=== PATIENT | female | born 1995 | race Hispanic/Latino ===

== ENCOUNTER 2020-09-09 20:32 | Inpatient (IN) | payer BC ==
[2020-09-09] MEDS ORDERED: LACTATED RINGERS 1,000 ML ONE (20:52)
[2020-09-09] MEDS ORDERED: TERBUTALINE 1 MG/1 ML INJ SUB-Q PRN (21:58)
[2020-09-09] MEDS ORDERED: MINERAL OIL 30 ML ORAL LIQD PO PRN (21:58)
[2020-09-09] MEDS ORDERED: LIDOCAINE (2%) 20 MG/1 ML VIAL 20 ML MDV INFILTRATI ONE (21:58)
[2020-09-09] MEDS ORDERED: OXYTOCIN DRIP 30 UNITS/500 ML BAG IV SCH (22:00)
[2020-09-09] MEDS: LACTATED RINGERS 1,000 ML IV SCH ×2 (22:38→22:45)
[2020-09-09 22:39] LABS: Hemoglobin 10.3 gm/dl (10.1-14.3); Mean Corpuscular HGB Conc 33 % (30-34); Mean Corpuscular Volume 86 fl (79-97); Platelet Count 255 K/mm3 (140-440); Red Blood Count 3.61 M/mm3 (3.65-5.03); Red Cell Distribution Width 14.3 % (13.2-15.2)
[2020-09-09] MEDS: OXYTOCIN DRIP 30 UNITS/500 ML BAG IV SCH (23:39)
[2020-09-10] MEDS ORDERED: fentaNYL 100 MCG/2 ML INJ IV PRN (01:27)
--- NOTE | 2020-09-10 06:00 | History and Physical Report ---
History of Present Illness Date of examination: 09/10/20 Date of admission: 09/09/20 20:32 Chief complaint: IOL post term History of present illness: EDC Calculations LMP: 08/31/2020 EDC Confirmation: 08/31/2020 Gestational Age: 6 4/7 weeks Past History : 1 Term Births: 0 Premature Births: 0 Living Children: 0 Para: 0 Mult. Births: 0 Prev : 0 Aborta: 0 Elect. Ab: 0 Spont. 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 Infection History Hx of STD: none HIV Risk Eval: no Hepatitis B Risk Eval: low risk Personal hx. of genital herpes: no Genetic History Congenital Heart Defect: Mom: no Dad: no Morgan Disease: Mom: no Dad: no Thalassemia Mom: no Dad: no Neural Tube Defect Mom: no Dad: no Down's Syndrome Mom: no Dad: no Greg-Sachs Mom: no Dad: no Sickle Cell Disease/Trait Mom: no Dad: no Hemophilia Mom: no Dad: no Muscular Dystrophy Mom: no Dad: no Cystic Fibrosis Mom: no Dad: no Newton Chorea Mom: no Dad: no Mental Retardation Mom: no Dad: no Fragile X Mom: no Dad: no Other Genetic/Chromosomal Disorder Mom: no Dad: no Child w/other defect Mom: no Dad: no Enviromental Exposures Xray Exposure: no Medication, drug, or alcohol use since LMP: no Exposure to Cat Liter: no Active Medications: None Current Allergies (reviewed today): * SULFA (Critical) Past History - Obstetrical History Expected Date of Delivery: 10/23/20 Actual Gestation: 41 Week(s) 3 Day(s) : 1 Medications and Allergies Allergies Allergy/AdvReac Type Severity Reaction Status Date / Time latex Allergy Rash Verified 09/09/20 20:59 Sulfa (Sulfonamide Allergy Hives Verified 09/09/20 20:59 Antibiotics) Home Medications Medication Instructions Recorded Confirmed Last Taken Type No Known Home Medications [No 09/09/20 09/09/20 Unknown History Reported Home Medications] Active Meds: Active Medications Ephedrine Sulfate (Ephedrine Sulfate) 10 mg IV Q2M PRN PRN Reason: Hypotension Fentanyl (Sublimaze) 100 mcg IV Q1H PRN PRN Reason: Labor Pain Last Admin: 09/10/20 01:52 Dose: 100 mcg Documented by: Oxytocin/Sodium Chloride (Pitocin/Ns 30 Unit/500ml) 30 units in 500 mls @ 2 mls/hr IV TITR AYAKA; Protocol Last Titration: 09/10/20 05:13 Dose: 3 ml/hr, 3 mls/hr Documented by: Lactated Ringer's (Lactated Ringers) 1,000 mls @ 125 mls/hr IV DIRECT AYAKA Last Admin: 09/09/20 22:45 Dose: 125 mls/hr Documented by: Oxytocin/Sodium Chloride (Pitocin/Ns 30 Unit/500ml) 30 units in 500 mls @ 40 mls/hr IV TITR AYAKA; Protocol Mineral Oil (Mineral Oil) 30 ml PO QHS PRN PRN Reason: Constipation Terbutaline Sulfate (Brethine) 0.25 mg SUB-Q ONCE PRN PRN Reason: Hyperstimulation/Hypertonicity Review of Systems All systems: negative Genitourinary: contractions - Vital Signs Vital signs: Vital Signs Pulse BP Pulse Ox 93 H 130/71 99 09/09/20 21:16 09/09/20 21:16 09/09/20 21:16 Temp Pulse Resp BP Pulse Ox 98.8 F 91 H 18 122/67 99 09/10/20 04:07 09/10/20 04:04 09/10/20 04:07 09/10/20 04:04 09/10/20 01:44 - Physical Exam Breasts: Positive: deferred Cardiovascular: Regular rate Lungs: Positive: Normal air movement Abdomen: Positive: soft. Negative: distention, tenderness Genitourinary (Female): Positive: normal external genitalia, normal perenium Vulva: both: normal Uterus: Positive: enlarged. Negative: tender Anus/Rectum: Positive: normal perianal skin Extremities: Positive: normal. Negative: tenderness, edema - Obstetrical FHR: category 1 Uterine Contraction Monitor Mode: External Cervical Dilatation: 5 Cervical Effacement Percentage: 100 station: 0 Uterine Contraction Frequency (min): 2-3 Uterine Contraction Pattern: Regular Results Result Diagrams: 09/09/20 21:47 Abnormal lab results 09/09/20 Range/Units 21:47 WBC 12.5 H (4.5-11.0) K/mm3 RBC 3.61 L (3.65-5.03) M/mm3 All other labs normal. Assessment and Plan - Patient Problems (1) 41 weeks gestation of Current Visit: Yes Status: Acute Plan to address problem: Now active labor, anticipate vaginal delivery
[2020-09-10] MEDS ORDERED: DEXMEDETOMIDINE 200 MCG/2 ML VIAL IV ONE (06:33)
[2020-09-10] MEDS: ePHEDrine SULFATE 50 MG/1 ML INJ IV PRN ×2 (06:51→06:55)
[2020-09-10] MEDS ORDERED: fentaNYL-BUPIV 2 MCG/ML-0.125% 200 MCG/100 ML BAG EPIDURAL ONE (07:04)
[2020-09-10] MEDS ORDERED: NALOXONE 2 MG/2 ML INJ IV PRN (07:09)
[2020-09-10] MEDS ORDERED: ePHEDrine SULFATE 50 MG/1 ML INJ IV PRN (07:09)
--- NOTE | 2020-09-10 07:11 | Anesthesia Consultation ---
Anesthesia Consult and Med Hx Date of service: 09/10/20 - Airway Anesthetic Teeth Evaluation: Good ROM Head & Neck: Adequate Mental/Hyoid Distance: Adequate Mallampati Class: Class II Intubation Access Assessment: Good - Pulmonary Exam CTA: Yes - Cardiac Exam Cardiac Exam: RRR - Pre-Operative Health Status ASA Pre-Surgery Classification: ASA2 Proposed Anesthetic Plan: Epidural - Pulmonary Hx Smoking: No Hx Asthma: No Hx Respiratory Symptoms: No SOB: No COPD: No Home Oxygen Therapy: No Hx Pneumonia: No Hx Sleep Apnea: No - Cardiovascular System Hx Hypertension: No Hx Coronary Artery Disease: No Hx Heart Attack/AMI: No Hx Angina: No Hx Percutaneous Transluminal Coronary Angioplasty (PTCA): No Hx Cardia Arrhythmia: No Hx Pacemaker: No Hx Internal Defibrillator: No Hx Valvular Heart Disease: No Hx Heart Murmur: No Hx Peripheral Vascular Disease: No - Central Nervous System Hx Neuromuscular Disorder: No Hx Seizures: No CVA: No Hx Back Pain: No Hx Psychiatric Problems: No - Gastrointestinal Hx Ulcer: No Hx Gastroesophageal Reflux Disease: No - Endocrine Hx Renal Disease: No Hx End Stage Renal Disease: No Hx Cirrhosis: No Hx Liver Disease: No Hx Insulin Dependent Diabetes: No Hx Non-Insulin Dependent Diabetes: No Hx Thyroid Disease: No Hx Hypothyroidism: No Hx Hyperthyroidism: No - Hematic Hx Anemia: No Hx Sickle Cell Disease: No - Other Systems Hx Alcohol Use: Yes (NOT DURING ) Hx Substance Use: No Hx Cancer: No Hx Obesity: Yes
--- NOTE | 2020-09-10 07:12 | Progress Note ---
Labor Epidural - Labor Epidural Start Time: 06:14 Stop Time: 06:30 Performed by:: [facility] Procedure: Patient is requesting a laboring epidural for laboring pain. Patient IDed, H&P reviewed, all questions and concerns were answered, and consent was signed. Timeout was performed at bedside. Patient in sitting position. Sterile prep and drape was performed. [3] ml of 1% lidocaine skin wheal at L[]- L []. 18- gauge Tuohy epidural needle was advanced to loss of resistance with air technique to 4cm. Negative CSF negative blood via Tuohy needle. #27g Spinal needle clear, free flowing CSF, Pecedex 10 mcg. Epidural catheter advanced to [10] centimeters. [negative] Aspiration [negative] test dose. Sterile dressing applied. Patient tolerated procedure.
[2020-09-10] MEDS: OXYTOCIN DRIP 30 UNITS/500 ML BAG IV SCH ×2 (07:56→08:51)
[2020-09-10] MEDS ORDERED: fentaNYL-BUPIV 2 MCG/ML-0.125% 200 MCG/100 ML BAG EPIDURAL SCH (08:00)
--- NOTE | 2020-09-10 08:52 | Progress Note ---
Assessment and Plan A: 24 y.o. @ 41+ wks in active labor. Cervical exam 6/100/-2, AROM, clear fluid. P: Continue with Pitocin per protocol. Anticipate . Subjective - Subjective Date of service: 09/10/20 (Late Entry note from 0815) Principal diagnosis: IUP at 41+ wks in active labor. Objective - Vital Signs Vital Signs: Vital Signs - 12hr 09/09/20 09/09/20 09/09/20 21:16 21:21 21:26 Temperature Pulse Rate 92 H 102 H 105 H Respiratory Rate Blood Pressure 130/71 Blood Pressure [Right] O2 Sat by Pulse 99 98 99 Oximetry 09/09/20 09/09/20 09/09/20 21:31 21:36 21:41 Temperature Pulse Rate 105 H 95 H 102 H Respiratory Rate Blood Pressure Blood Pressure [Right] O2 Sat by Pulse 100 99 100 Oximetry 09/09/20 09/09/20 09/09/20 21:46 21:51 22:02 Temperature Pulse Rate 89 89 88 Respiratory Rate Blood Pressure Blood Pressure [Right] O2 Sat by Pulse 99 99 100 Oximetry 09/09/20 09/09/20 09/09/20 22:03 22:07 22:12 Temperature 98.9 F Pulse Rate 85 81 Respiratory 18 Rate Blood Pressure Blood Pressure [Right] O2 Sat by Pulse 100 100 Oximetry 09/09/20 09/09/20 09/09/20 22:17 22:22 22:27 Temperature Pulse Rate 80 84 79 Respiratory Rate Blood Pressure Blood Pressure [Right] O2 Sat by Pulse 99 100 100 Oximetry 09/09/20 09/09/20 09/09/20 22:32 22:37 22:42 Temperature Pulse Rate 84 92 H 88 Respiratory Rate Blood Pressure Blood Pressure [Right] O2 Sat by Pulse 100 100 100 Oximetry 09/09/20 09/09/20 09/09/20 22:47 22:52 22:57 Temperature Pulse Rate 79 84 80 Respiratory Rate Blood Pressure Blood Pressure [Right] O2 Sat by Pulse 99 99 99 Oximetry 09/09/20 09/09/20 09/09/20 23:02 23:11 23:16 Temperature Pulse Rate 85 85 74 Respiratory Rate Blood Pressure Blood Pressure [Right] O2 Sat by Pulse 98 98 99 Oximetry 09/09/20 09/09/20 09/09/20 23:21 23:26 23:31 Temperature Pulse Rate 76 84 88 Respiratory Rate Blood Pressure Blood Pressure [Right] O2 Sat by Pulse 98 99 99 Oximetry 09/09/20 09/09/20 09/09/20 23:36 23:41 23:46 Temperature Pulse Rate 77 82 75 Respiratory Rate Blood Pressure Blood Pressure [Right] O2 Sat by Pulse 100 99 99 Oximetry 09/09/20 09/09/20 09/10/20 23:51 23:56 00:01 Temperature Pulse Rate 75 79 77 Respiratory Rate Blood Pressure Blood Pressure [Right] O2 Sat by Pulse 98 98 98 Oximetry 09/10/20 09/10/20 09/10/20 00:06 00:14 00:19 Temperature Pulse Rate 94 H 76 77 Respiratory Rate Blood Pressure Blood Pressure [Right] O2 Sat by Pulse 99 100 98 Oximetry 09/10/20 09/10/20 09/10/20 00:24 00:29 00:34 Temperature Pulse Rate 82 78 75 Respiratory Rate Blood Pressure Blood Pressure [Right] O2 Sat by Pulse 97 98 98 Oximetry 09/10/20 09/10/20 09/10/20 00:39 00:44 00:49 Temperature Pulse Rate 79 71 74 Respiratory Rate Blood Pressure Blood Pressure [Right] O2 Sat by Pulse 99 99 98 Oximetry 09/10/20 09/10/20 09/10/20 00:54 00:59 01:04 Temperature Pulse Rate 73 71 92 H Respiratory Rate Blood Pressure Blood Pressure [Right] O2 Sat by Pulse 99 99 100 Oximetry 09/10/20 09/10/20 09/10/20 01:09 01:14 01:19 Temperature Pulse Rate 73 83 79 Respiratory Rate Blood Pressure Blood Pressure [Right] O2 Sat by Pulse 98 99 99 Oximetry 09/10/20 09/10/20 09/10/20 01:24 01:29 01:34 Temperature Pulse Rate 79 85 74 Respiratory Rate Blood Pressure Blood Pressure [Right] O2 Sat by Pulse 100 99 99 Oximetry 09/10/20 09/10/20 09/10/20 01:39 01:44 01:52 Temperature Pulse Rate 82 78 Respiratory 18 Rate Blood Pressure Blood Pressure [Right] O2 Sat by Pulse 100 99 Oximetry 09/10/20 09/10/20 09/10/20 02:52 04:04 04:07 Temperature 98.8 F Pulse Rate 91 H Respiratory 18 18 Rate Blood Pressure 122/67 Blood Pressure [Right] O2 Sat by Pulse Oximetry 09/10/20 09/10/20 09/10/20 06:10 06:12 06:14 Temperature Pulse Rate 88 98 H 91 H Respiratory Rate Blood Pressure 124/69 127/68 131/66 Blood Pressure [Right] O2 Sat by Pulse Oximetry 09/10/20 09/10/20 09/10/20 06:16 06:18 06:20 Temperature Pulse Rate 105 H 88 102 H Respiratory Rate Blood Pressure 132/75 143/66 120/59 Blood Pressure [Right] O2 Sat by Pulse Oximetry 09/10/20 09/10/20 09/10/20 06:22 06:24 06:26 Temperature Pulse Rate 108 H 95 H 118 H Respiratory Rate Blood Pressure 125/64 134/64 137/65 Blood Pressure [Right] O2 Sat by Pulse Oximetry 09/10/20 09/10/20 09/10/20 06:28 06:30 06:32 Temperature Pulse Rate 96 H 92 H 97 H Respiratory Rate Blood Pressure 133/64 140/69 124/70 Blood Pressure [Right] O2 Sat by Pulse Oximetry 09/10/20 09/10/20 09/10/20 06:36 06:40 06:41 Temperature Pulse Rate 111 H 101 H 74 Respiratory Rate Blood Pressure 109/60 98/51 79/41 Blood Pressure [Right] O2 Sat by Pulse Oximetry 09/10/20 09/10/20 09/10/20 06:42 06:44 06:46 Temperature Pulse Rate 75 85 112 H Respiratory Rate Blood Pressure 96/51 98/50 108/57 Blood Pressure [Right] O2 Sat by Pulse Oximetry 09/10/20 09/10/20 09/10/20 06:48 06:50 06:52 Temperature Pulse Rate 93 H 80 83 Respiratory Rate Blood Pressure 105/53 88/53 91/52 Blood Pressure [Right] O2 Sat by Pulse Oximetry 09/10/20 09/10/20 09/10/20 06:54 06:56 06:58 Temperature Pulse Rate 87 60 82 Respiratory Rate Blood Pressure 85/44 113/56 110/55 Blood Pressure [Right] O2 Sat by Pulse Oximetry 09/10/20 09/10/20 09/10/20 07:00 07:02 07:04 Temperature 98.0 F Pulse Rate 88 109 H 108 H Respiratory 16 Rate Blood Pressure 109/59 107/58 95/55 Blood Pressure 95/55 [Right] O2 Sat by Pulse 95 Oximetry 09/10/20 09/10/20 09/10/20 07:06 07:08 07:10 Temperature Pulse Rate 88 121 H 120 H Respiratory Rate Blood Pressure 97/55 96/59 87/51 Blood Pressure [Right] O2 Sat by Pulse Oximetry 09/10/20 09/10/20 09/10/20 07:12 07:14 07:16 Temperature Pulse Rate 83 103 H 103 H Respiratory Rate Blood Pressure 109/57 102/59 107/56 Blood Pressure [Right] O2 Sat by Pulse 97 Oximetry 09/10/20 09/10/20 09/10/20 07:18 07:20 07:21 Temperature Pulse Rate 96 H 95 H 111 H Respiratory Rate Blood Pressure 110/58 113/57 Blood Pressure [Right] O2 Sat by Pulse 99 Oximetry 09/10/20 09/10/20 09/10/20 07:22 07:24 07:26 Temperature Pulse Rate 104 H 89 79 Respiratory Rate Blood Pressure 112/59 111/57 111/58 Blood Pressure [Right] O2 Sat by Pulse 99 Oximetry 09/10/20 09/10/20 09/10/20 07:28 07:30 07:31 Temperature Pulse Rate 90 84 114 H Respiratory Rate Blood Pressure 102/58 110/59 Blood Pressure [Right] O2 Sat by Pulse 98 Oximetry 09/10/20 09/10/20 09/10/20 07:32 07:34 07:36 Temperature Pulse Rate 114 H 109 H 117 H Respiratory Rate Blood Pressure 92/55 86/51 107/56 Blood Pressure [Right] O2 Sat by Pulse 99 Oximetry 09/10/20 09/10/20 09/10/20 07:38 07:40 07:41 Temperature Pulse Rate 96 H 107 H 130 H Respiratory Rate Blood Pressure 95/52 101/55 Blood Pressure [Right] O2 Sat by Pulse 99 Oximetry 09/10/20 09/10/20 09/10/20 07:42 07:44 07:46 Temperature Pulse Rate 141 H 89 97 H Respiratory Rate Blood Pressure 97/55 109/60 101/58 Blood Pressure [Right] O2 Sat by Pulse 99 Oximetry 09/10/20 09/10/20 09/10/20 07:48 07:50 07:51 Temperature Pulse Rate 85 107 H 83 Respiratory Rate Blood Pressure 100/55 94/55 Blood Pressure [Right] O2 Sat by Pulse 98 Oximetry 09/10/20 09/10/20 09/10/20 07:52 07:54 07:56 Temperature Pulse Rate 78 116 H 76 Respiratory Rate Blood Pressure 97/55 93/50 101/52 Blood Pressure [Right] O2 Sat by Pulse 98 Oximetry 09/10/20 09/10/20 09/10/20 07:58 08:00 08:01 Temperature Pulse Rate 104 H 77 102 H Respiratory Rate Blood Pressure 95/48 99/50 Blood Pressure [Right] O2 Sat by Pulse 98 Oximetry 09/10/20 09/10/20 09/10/20 08:02 08:04 08:06 Temperature Pulse Rate 107 H 81 79 Respiratory Rate Blood Pressure 88/46 93/50 82/47 Blood Pressure [Right] O2 Sat by Pulse 98 Oximetry 09/10/20 09/10/20 09/10/20 08:08 08:10 08:11 Temperature Pulse Rate 77 90 104 H Respiratory Rate Blood Pressure 103/50 106/58 Blood Pressure [Right] O2 Sat by Pulse 98 Oximetry 09/10/20 09/10/20 09/10/20 08:12 08:14 08:16 Temperature Pulse Rate 110 H 86 99 H Respiratory Rate Blood Pressure 87/50 96/53 94/50 Blood Pressure [Right] O2 Sat by Pulse 99 Oximetry 09/10/20 09/10/20 09/10/20 08:20 08:21 08:22 Temperature Pulse Rate 89 86 89 Respiratory Rate Blood Pressure 89/53 97/51 Blood Pressure [Right] O2 Sat by Pulse 99 Oximetry 09/10/20 09/10/20 09/10/20 08:24 08:26 08:28 Temperature Pulse Rate 113 H 94 H 71 Respiratory Rate Blood Pressure 79/40 92/55 94/53 Blood Pressure [Right] O2 Sat by Pulse 100 Oximetry 09/10/20 09/10/20 09/10/20 08:30 08:31 08:32 Temperature Pulse Rate 81 109 H 106 H Respiratory Rate Blood Pressure 84/53 83/45 Blood Pressure [Right] O2 Sat by Pulse 99 Oximetry 09/10/20 09/10/20 09/10/20 08:34 08:36 08:38 Temperature Pulse Rate 71 72 85 Respiratory Rate Blood Pressure 99/55 102/52 92/55 Blood Pressure [Right] O2 Sat by Pulse 100 Oximetry 09/10/20 09/10/20 09/10/20 08:40 08:41 08:42 Temperature Pulse Rate 80 92 H 90 Respiratory Rate Blood Pressure 96/51 92/55 Blood Pressure [Right] O2 Sat by Pulse 99 Oximetry 09/10/20 09/10/20 09/10/20 08:44 08:46 08:48 Temperature Pulse Rate 95 H 83 74 Respiratory Rate Blood Pressure 91/54 94/51 100/54 Blood Pressure [Right] O2 Sat by Pulse 100 Oximetry 09/10/20 09/10/20 08:50 08:51 Temperature Pulse Rate 98 H 88 Respiratory Rate Blood Pressure 93/54 96/54 Blood Pressure [Right] O2 Sat by Pulse 100 Oximetry - Exam Breasts: deferred Cardiovascular: Regular rate Lungs: Normal air movement Abdomen: Present: normal appearance, soft Vulva: both: normal Uterus: Present: normal FHR: auscultation normal, category 1 Uterine Contraction Monitor Mode: External Cervical Dilatation: 6 (AROM clear fluid) Cervical Effacement Percentage: 100 station: -2 Uterine Contraction Pattern: Regular Uterine Tone Measurement Phase: Resting Uterine Contraction Intensity: Moderate Extremities: normal Deep Tendon Reflex Grade: Normal +2 - Labs Labs: Abnormal Labs 09/09/20 21:47 WBC 12.5 H RBC 3.61 L Laboratory Results - last 24 hr 09/09/20 09/09/20 09/09/20 21:47 21:47 21:47 WBC 12.5 H RBC 3.61 L Hgb 10.3 Hct 31.0 MCV 86 MCH 29 MCHC 33 RDW 14.3 Plt Count 255 Syphilis IgG Antibody Nonreactive Blood Type A POSITIVE Antibody Screen Negative
--- NOTE | 2020-09-10 12:25 | Procedure Note ---
OB Delivery Note - Environmental Protection Geologist: DORIE HOPE (Kamar GUPTAM) Estimated blood loss: 100cc - Vaginal Delivery presentation: vertex Delivery position: OA (DOMINGO) Intrapartum events: meconium (terminal) Delivery induction: oxytocin Delivery augmentation: rupture of membranes Delivery monitor: external FHT, external uterine Route of delivery: Delivery placenta: spontaneous Delivery cord: 3 umbilical vessels Episiotomy: none Delivery laceration: 1st degree Delivery repair: other (no repair needed) Anesthesia: epidural Delivery comments: viable male born over intact perineum, terminal meconium, 3 vessel cord clamped and cut, infant handed to MUNDO RN, placenta delivered spontaneously and intact, perineum and vagina inspected, 1st degree laceration noted homeostatic, no repair needed, fundus firm, minimal lochia, Apgars 7,9, wt. 8lbs 0oz, EBL 100mL, mother and baby LDR stable, all counts correct x2 - A at 1 minute: 7 at 5 minutes: 9 Infant Gender: Male (8lbs 0oz)
--- NOTE | 2020-09-10 13:07 | Post Anesthesia Evaluation ---
- Post Anesthesia Evaluation Patient Participated: Yes Airway Patent: Yes Stable Respiratory Function: Yes Nausea/Vomiting: No Temp > 96.8F: Yes Pain Manageable: Yes Adequeate Hydration: Yes Anesthesia Complications: No Block Receding Appropriately: Yes Patient on Ventilator: No
[2020-09-10] MEDS ORDERED: IBUPROFEN 600 MG TAB PO SCH (15:48)
[2020-09-10] MEDS ORDERED: CARBOPROST TROMETHAMINE 250 MCG/1 ML INJ IM PRN (15:48)
[2020-09-10] MEDS ORDERED: ACETAMINOPHEN 325 MG TAB PO PRN (15:48)
[2020-09-10] MEDS ORDERED: METHYLERGONOVINE MALEATE 0.2 MG/ML VIAL IM PRN (16:00)
[2020-09-10] MEDS ORDERED: BENZOCAINE/MENTHOL 20/0.5% TOP SPRAY 56 GM TP PRN (16:00)
[2020-09-10] MEDS ORDERED: miSOPROStol 100 MCG TAB PR PRN (16:00)
[2020-09-10] MEDS ORDERED: diphenhydrAMINE 25 MG CAP PO PRN (16:00)
[2020-09-10] MEDS ORDERED: ONDANSETRON 4 MG/2 ML INJ IV PRN (16:00)
[2020-09-10] MEDS ORDERED: WITCH HAZEL/ GLYCERIN PAD TP PRN (16:00)
[2020-09-10] MEDS ORDERED: LOPERAMIDE 2 MG CAP PO PRN (16:00)
[2020-09-10] MEDS ORDERED: ACETAMINOPHEN 500 MG TAB PO PRN (16:00)
[2020-09-10] MEDS ORDERED: OXYTOCIN DRIP 30 UNITS/500 ML BAG IV SCH (16:00)
[2020-09-10] MEDS ORDERED: LANOLIN/ZINC/DIMETHICONE (LANSINOH) 7 GM TP PRN (16:00)
[2020-09-10] MEDS ORDERED: PROMETHAZINE 25 MG TAB PO PRN (16:30)
[2020-09-10] MEDS: IBUPROFEN 800 MG TAB PO SCH (20:09)
[2020-09-10] MEDS ORDERED: MAGNESIUM HYDROXIDE (MOM) ORAL LIQD UDC PO PRN (22:00)
[2020-09-11 01:28] LABS: Hematocrit 27.1 % (30.3-42.9); Hemoglobin 9.1 gm/dl (10.1-14.3)
[2020-09-11] MEDS: DOCUSATE SODIUM 100 MG CAP PO SCH ×2 (05:09→09:30)
[2020-09-11] MEDS: IBUPROFEN 800 MG TAB PO SCH ×2 (05:38→13:25)
[2020-09-11] MEDS ORDERED: DIPHtheria,PERTUSSIS(ACELL),TETANUS VACCINE/PF 0.5 ML VIAL IM ONE (06:00)
[2020-09-11] MEDS ORDERED: PRENATAL VIT27-FE FUMARATE-FOLIC ACID VIT TAB PO SCH (10:00)
--- NOTE | 2020-09-11 11:11 | Discharge Summary ---
Providers - Providers Date of Admission: 09/09/20 20:32 Date of discharge: 09/11/20 (desires d/c home) Attending physician: OLAMIDE RANDOLPH Primary care physician: OLAMIDE RANDOLPH Hospitalization Reason for admission: Labor Condition: Good Pertinent studies: post delivery H&H 9.1/27.1, asymptomatic anemia following acute blood loss Procedures: Hospital course: uncomplicated and course Disposition: DC- TO HOME OR SELFCARE - Discharge Diagnoses (1) (normal spontaneous vaginal delivery) Status: Acute Core Measure Documentation - Palliative Care Palliative Care/ Comfort Measures: Not Applicable - Core Measures Any of the following diagnoses?: none Exam - Constitutional Vitals: Temp Pulse Resp BP Pulse Ox 97.6 F 83 18 105/65 99 09/11/20 07:49 09/11/20 07:49 09/11/20 07:49 09/11/20 07:49 09/11/20 07:49 General appearance: Present: no acute distress, well-nourished - EENT Eyes: Present: PERRL ENT: hearing intact, clear oral mucosa - Neck Neck: Present: supple, normal ROM - Respiratory Respiratory effort: normal - Cardiovascular Rhythm: regular - Extremities Extremities: pulses symmetrical, No edema Peripheral Pulses: within normal limits - Abdominal General gastrointestinal: Present: soft, non-tender, non-distended, normal bowel sounds Female genitourinary: Present: normal - Integumentary Integumentary: Present: clear, warm, dry - Musculoskeletal Musculoskeletal: gait normal, strength equal bilaterally - Psychiatric Psychiatric: appropriate mood/affect, intact judgment & insight - Neurologic Neurologic: CNII-XII intact, moves all extremities - Additional findings Additional findings: lochia scant, fundus firm, VSSAF, breast feeding Plan Activity: no restrictions Diet: regular Follow up with: OLAMIDE RANDOLPH MD [Primary Care Provider] - 7 Days (Congratulations! Please call [phone] to schedule your son's circumcision in 1 week and your visit in 4 weeks. Bring DANITA cream to your son's visit and await further teaching. Call for any questions or concerns. ) Prescriptions: Lidocain2.5%/Prilocai2.5% [Emla] 5 gm TP ONCE PRN #1 tube PRN Reason: Pain Lidocain2.5%/Prilocai2.5% [Emla] 1 applic TP ONCE #1 tube Ibuprofen [Motrin 800 MG tab] 800 mg PO Q8HR PRN #30 tablet PRN Reason: Pain
[2020-09-11 17:29] VITALS: BP 126/74
== END 2020-09-11 18:00 | disposition home or self-care (01) | DRG 806 ==
LOC: LD 20:32 → OB 09-10 13:34
PROVIDERS: ADMIT Obstetrics & Gynecology; ATTEND Obstetrics & Gynecology
PROC: 10E0XZZ Delivery of Products of Conception, External Approach (ICD-10-PCS; principal; 2020-09-10)
PROC: 10907ZC Drainage of Amniotic Fluid, Therapeutic from Products of Conception, Via Natural or Artificial Opening (ICD-10-PCS; 2020-09-10)
PROC: 3E033VJ Introduction of Other Hormone into Peripheral Vein, Percutaneous Approach (ICD-10-PCS; 2020-09-10)
PROC: 3E0R3BZ Introduction of Anesthetic Agent into Spinal Canal, Percutaneous Approach (ICD-10-PCS; 2020-09-10)
PROC: 00HU33Z Insertion of Infusion Device into Spinal Canal, Percutaneous Approach (ICD-10-PCS; 2020-09-10)
PROC: 3E0234Z Introduction of Serum, Toxoid and Vaccine into Muscle, Percutaneous Approach (ICD-10-PCS; 2020-09-11)
DX: O48.0 Post-term pregnancy (principal); D62 Acute posthemorrhagic anemia; Z37.0 Single live birth; Z3A.41 41 weeks gestation of pregnancy; Z88.2 Allergy status to sulfonamides; Z91.040 Latex allergy status; O99.214 Obesity complicating childbirth; E66.9 Obesity, unspecified; O77.0 Labor and delivery complicated by meconium in amniotic fluid; O70.0 First degree perineal laceration during delivery; Z23 Encounter for immunization; O90.81 Anemia of the puerperium; Z20.828 Contact with and (suspected) exposure to other viral communicable diseases
CPT/HCPCS: 36415; 85014; 85018; 85027; 86592; 86850; 86900; 86901; 90471; 90715; G0378; J2590; J3010; J7120; U0003